=== PATIENT | female | born 1960 ===

== ENCOUNTER 2022-11-27 12:12 | Inpatient (IN) | payer MEDICARE, OTHER ==
[~2022-11-27] VITALS: Ht 160 cm; Wt 52.3 kg
[2022-11-27] MEDS ORDERED: BUSPIRONE10 MG PO ×2 (13:26→22:30)
[2022-11-27] MEDS ORDERED: PANTOPRAZOLE SO40 MG PO ×2 (13:28→22:30)
[2022-11-27] MEDS ORDERED: LIDOCAINE PAIN1 EACH T ×2 (13:30→22:30)
[2022-11-27] MEDS ORDERED: LEXAPRO10 MG PO ×2 (13:31→22:31)
[2022-11-27] MEDS ORDERED: MIRALAX17 GM PO ×2 (13:32→22:31)
[2022-11-27] MEDS ORDERED: KLONOPIN0.5 MG PO ×2 (13:34→22:32)
[2022-11-27] MEDS ORDERED: LIPITOR20 MG PO ×2 (13:36→22:32)
[2022-11-27] MEDS ORDERED: KLONOPIN1 M1 PO ×2 (13:37→22:32)
[2022-11-27] MEDS ORDERED: REMERON15 M2 PO ×2 (13:40→22:33)
[2022-11-27] MEDS ORDERED: SEROQUEL50 MG PO ×2 (13:41→22:34)
[2022-11-27] MEDS ORDERED: ADVIL200 M1 PO (13:43)
[2022-11-27] MEDS ORDERED: TYLENOL EXTRA500 M3 PO (13:45)
[2022-11-27] MEDS ORDERED: ONDANSETRON HYDR4 M1 PO (13:47)
[2022-11-27] MEDS ORDERED: MAALOX ADVANCE355 M1 PO (13:49)
[2022-11-28 02:15] VITALS: BP 107/59
[2022-11-28 07:51] LABS: BASO % 0.7 % (0.0-1.0); EOS % 0.5 % (1.0-4.0); HEMATOCRIT 35.8 % (37.0-47.0); LYMPH # 1.6 10*3/uL (1.3-4.4); LYMPH % 38.9 % (27.0-41.0); MEAN CELL VOLUME 97.5 fl (81.0-99.0); MEAN CORPUSCULAR HGB 31.6 pg (27.0-31.0); MEAN CORPUSCULAR HGB CONC 32.4 g/dl (33.0-37.0); MEAN PLATELET VOLUME 8.4 fl (9.6-12.3); MONO # 0.4 10*3/uL (0.1-1.0); NEUT % 48.7 % (47.0-73.0); PLATELET COUNT AUTOMATED 217 10*3/uL (130-400); RED BLOOD COUNT 3.67 10*6/uL (4.10-5.10)
[2022-11-28 08:00] VITALS: BP 103/47
[2022-11-28 09:23] LABS: ALKALINE PHOSPHATASE 60 U/L (46-116); BUN 16 mg/dl (9-23); CHLORIDE 107 mmol/L (98-107); CHOLESTEROL 115 mg/dL (<200); LDL CHOLESTEROL 63 mg/dL (9-159); POTASSIUM 4.1 mmol/L (3.4-5.1); SGPT/ALT 11 U/L (10-49); THYROID STIM HORMONE (HS) 0.218 uIU/ml (0.550-4.780); TRIGLYCERIDES 44 mg/dl (<150)
[2022-11-28 10:35] LABS: VITAMIN D, 25-HYDROXY 37.5 ng/mL (30-100)
[2022-11-28 20:00] VITALS: BP 115/86
[2022-11-29 07:21] VITALS: BP 80/46
[2022-11-29 07:35] VITALS: BP 90/50
[2022-11-29 20:00] VITALS: BP 96/54
[2022-11-30 08:00] VITALS: BP 98/52
[2022-11-30 20:00] VITALS: BP 102/57
[2022-12-01 07:18] VITALS: BP 94/51
[2022-12-01 20:00] VITALS: BP 121/67
[2022-12-02 08:00] VITALS: BP 118/61
[2022-12-02 20:00] VITALS: BP 112/64
[2022-12-03 07:23] VITALS: BP 97/55
[2022-12-03 12:29] VITALS: BP 94/52
[2022-12-03 20:00] VITALS: BP 119/57
[2022-12-04 07:31] VITALS: BP 109/50
[2022-12-04 20:00] VITALS: BP 118/60
[2022-12-05 07:20] VITALS: BP 97/49
[2022-12-05 20:00] VITALS: BP 125/68
[2022-12-06 08:00] VITALS: BP 109/50; BP 133/63
[2022-12-06 20:00] VITALS: BP 114/55
[2022-12-07 07:22] VITALS: BP 115/72
[2022-12-07 20:00] VITALS: BP 127/65
[2022-12-08 07:23] VITALS: BP 117/63
[2022-12-08 20:00] VITALS: BP 120/64
[2022-12-09 07:43] VITALS: BP 102/56
[2022-12-09 20:00] VITALS: BP 120/60
[2022-12-10 07:26] VITALS: BP 145/75
[2022-12-10 20:00] VITALS: BP 113/64
[2022-12-11 07:47] VITALS: BP 115/58
[2022-12-11 10:04] LABS: BASO % 0.5 % (0.0-1.0); EOS # 0.1 10*3/uL (0.0-0.4); EOS % 1.2 % (1.0-4.0); HEMATOCRIT 42.1 % (37.0-47.0); LYMPH # 1.2 10*3/uL (1.3-4.4); LYMPH % 27.8 % (27.0-41.0); MEAN CELL VOLUME 99.3 fl (81.0-99.0); MEAN CORPUSCULAR HGB 31.8 pg (27.0-31.0); MEAN CORPUSCULAR HGB CONC 32.1 g/dl (33.0-37.0); MEAN PLATELET VOLUME 8.8 fl (9.6-12.3); MONO # 0.3 10*3/uL (0.1-1.0); MONO % 8.1 % (3.0-9.0); NEUT # 2.6 10*3/uL (2.3-7.9); NEUT % 62.4 % (47.0-73.0); PLATELET COUNT AUTOMATED 208 10*3/uL (130-400); RED BLOOD COUNT 4.24 10*6/uL (4.10-5.10); RED CELL DISTRI WIDTH 12.7 % (0-14.5); WHITE BLOOD COUNT 4.2 10*3/uL (4.8-10.8)
[2022-12-11 10:24] LABS: ALKALINE PHOSPHATASE 68 U/L (46-116); BUN 12 mg/dl (9-23); CHLORIDE 104 mmol/L (98-107); SGPT/ALT 20 U/L (10-49); TOTAL PROTEIN 6.7 gm/dL (6.0-8.0)
[2022-12-11 10:29] VITALS: BP 138/63
[2022-12-11 20:00] VITALS: BP 120/62
[2022-12-12 07:21] VITALS: BP 107/62
[2022-12-12 20:00] VITALS: BP 112/62
[2022-12-13 07:16] VITALS: BP 97/51
[2022-12-13 20:00] VITALS: BP 100/56
[2022-12-14 08:00] VITALS: BP 93/61
[2022-12-14] MEDS ORDERED: DULOXETINE HCL60 MG PO (08:22)
[2022-12-14] MEDS ORDERED: DIAZEPAM5 MG PO (08:22)
[2022-12-14] MEDS ORDERED: Lidoderm 5% Patch T (08:22)
[2022-12-14] MEDS ORDERED: RIVASTIGMINE1 EAC2 T (08:22)
[2022-12-14] MEDS ORDERED: B121000 MCG/1 IM (08:22)
[2022-12-14] MEDS ORDERED: CYCLOBENZAPRINE10 MG PO (08:38)
[2022-12-14] MEDS ORDERED: DOXYCYCLINE MO100 MG PO (08:39)
[2022-12-14] MEDS ORDERED: SENOKOT8.6 MG PO (10:21)
== END 2022-12-14 19:20 | DRG 885 ==
LOC: 3N 12:12
PROVIDERS: Counselor Professional; ADMIT Psychiatry & Neurology Psychiatry; ATTEND Psychiatry & Neurology Psychiatry
DX: F25.1 Schizoaffective disorder, depressive type (principal); F03.94 Unspecified dementia, unspecified severity, with anxiety; F33.9 Major depressive disorder, recurrent, unspecified; K21.9 Gastro-esophageal reflux disease without esophagitis; F41.1 Generalized anxiety disorder; I50.9 Heart failure, unspecified; E78.5 Hyperlipidemia, unspecified; I95.9 Hypotension, unspecified; D64.9 Anemia, unspecified; I44.7 Left bundle-branch block, unspecified; R07.81 Pleurodynia; S22.32XS Fracture of one rib, left side, sequela; Z90.49 Acquired absence of other specified parts of digestive tract; Z87.891 Personal history of nicotine dependence; Z79.1 Long term (current) use of non-steroidal anti-inflammatories (NSAID); Z79.899 Other long term (current) drug therapy; S31.819A Unspecified open wound of right buttock, initial encounter; X58.XXXA Exposure to other specified factors, initial encounter; Y93.89 Activity, other specified; Y92.89 Other specified places as the place of occurrence of the external cause; Y99.8 Other external cause status

== ENCOUNTER 2022-11-27 22:07 | Emergency (ER) | payer MEDICARE, OTHER ==
[~2022-11-27] VITALS: Ht 162.5 cm; Wt 52.6 kg
[~2022-11-27 22:07] MED LIST: ADVIL200 M1 PO; BUSPIRONE10 MG PO; KLONOPIN0.5 MG PO; KLONOPIN1 M1 PO; LEXAPRO10 MG PO; LIDOCAINE PAIN1 EACH T; LIPITOR20 MG PO; MAALOX ADVANCE355 M1 PO; MIRALAX17 GM PO; ONDANSETRON HYDR4 M1 PO; PANTOPRAZOLE SO40 MG PO; REMERON15 M2 PO; SEROQUEL50 MG PO; TYLENOL EXTRA500 M3 PO
[2022-11-27] MEDS ORDERED: PANTOPRAZOLE SO40 MG PO (22:30)
[2022-11-27] MEDS ORDERED: LIDOCAINE PAIN1 EACH T (22:30)
[2022-11-27] MEDS ORDERED: BUSPIRONE10 MG PO (22:30)
[2022-11-27] MEDS ORDERED: MIRALAX17 GM PO (22:31)
[2022-11-27] MEDS ORDERED: LEXAPRO10 MG PO (22:31)
[2022-11-27] MEDS ORDERED: KLONOPIN1 M1 PO (22:32)
[2022-11-27] MEDS ORDERED: LIPITOR20 MG PO (22:32)
[2022-11-27] MEDS ORDERED: KLONOPIN0.5 MG PO (22:32)
[2022-11-27] MEDS ORDERED: REMERON15 M2 PO (22:33)
[2022-11-27] MEDS ORDERED: SEROQUEL50 MG PO (22:34)
[2022-11-27 22:39] LABS: BASO % 0.4 % (0.0-1.0); EOS % 0.4 % (1.0-4.0); HEMATOCRIT 36.1 % (37.0-47.0); LYMPH # 1.3 10*3/uL (1.3-4.4); LYMPH % 29.4 % (27.0-41.0); MEAN CELL VOLUME 96.8 fl (81.0-99.0); MEAN CORPUSCULAR HGB 31.6 pg (27.0-31.0); MEAN CORPUSCULAR HGB CONC 32.7 g/dl (33.0-37.0); MEAN PLATELET VOLUME 8.9 fl (9.6-12.3); MONO # 0.4 10*3/uL (0.1-1.0); MONO % 8.7 % (3.0-9.0); NEUT # 2.7 10*3/uL (2.3-7.9); NEUT % 60.9 % (47.0-73.0); PLATELET COUNT AUTOMATED 264 10*3/uL (130-400); RED BLOOD COUNT 3.73 10*6/uL (4.10-5.10); RED CELL DISTRI WIDTH 13.1 % (0-14.5); WHITE BLOOD COUNT 4.5 10*3/uL (4.8-10.8)
[2022-11-27 22:47] LABS: ALKALINE PHOSPHATASE 69 U/L (46-116); BUN 18 mg/dl (9-23); CHLORIDE 107 mmol/L (98-107); POTASSIUM 3.9 mmol/L (3.4-5.1); SGPT/ALT 12 U/L (10-49); TOTAL PROTEIN 6.4 gm/dL (6.0-8.0)
[2022-11-27 23:22] LABS: ETHYL ALCOHOL < 3.0 mg/dl (<3)
[2022-11-28 00:46] LABS: URINE AMPHETAMINES Negative (1000ng/ml); URINE BARBITURATES Negative (200ng/ml); URINE BENZODIAZEPINES Negative (200ng/ml); URINE CANNABINOIDS (THC) Negative (50ng/ml); URINE COCAINE Negative (300ng/ml); URINE METHADONE Negative (300ng/ml); URINE OPIATES Negative (300ng/ml); URINE PHENCYCLIDINE Negative (25ng/ml)
[2022-11-28 00:50] LABS: BILIRUBIN Negative (Negative); BLOOD Negative (Negative); CLARITY Clear (Clear); COLOR Yellow (Yellow); GLUCOSE Negative (Negative); KETONE Negative (Negative); LEUKO ESTERASE Negative (Negative); NITRITE Negative (Negative); SPECIFIC GRAVITY 1.025 (1.001-1.030)
[2022-11-28 01:05] LABS: WBC 0-2 wbc/hpf (0-5)
== END 2022-11-28 02:15 | disposition admitted as inpatient to this hospital (09) ==
LOC: ED 22:07
PROVIDERS: Internal Medicine
DX: F20.9 Schizophrenia, unspecified (principal); D64.9 Anemia, unspecified; Z20.822 Contact with and (suspected) exposure to COVID-19